=== PATIENT | male | born 1970 | race American Indian/Alaskan Native ===

== ENCOUNTER 2018-03-02 11:54 | Emergency (ER) | payer SELFPAY ==
[2018-03-02 12:15] VITALS: BP 126/84
[2018-03-02] MEDS ORDERED: DECADRON IM ONE (12:58)
--- NOTE | 2018-03-02 13:20 | Emergency Department Report ---
ED Animal Bite HPI - General Chief Complaint: Animal Bite Stated Complaint: PAIN/ SWELLING Time Seen by Provider: 03/02/18 12:37 Source: patient Mode of arrival: Ambulatory Limitations: No Limitations - History of Present Illness Initial Comments: She was in his yard mowing the grass and he was attacked by several hornets. Patient was stung on the top of his head as well as the right upper extremity he has a burning sensation is 6 out of 10 in severity patient denies any shortness of breath problems breathing at this time. Patient states is been no nausea vomiting. - Related Data Previous Rx's Medication Instructions Recorded Last Taken Type Ibuprofen [Motrin] 800 mg PO Q8HR PRN #14 tablet 03/02/18 Unknown Rx predniSONE [Deltasone] 20 mg PO QDAY #5 tab 03/02/18 Unknown Rx Allergies Allergy/AdvReac Type Severity Reaction Status Date / Time Penicillins Allergy Rash Verified 03/02/18 12:15 ED Review of Systems ROS: Stated complaint: PAIN/ SWELLING Other details as noted in HPI Comment: All other systems reviewed and negative ED Past Medical Hx - Past Medical History Additional medical history: hyperlipidemia - Social History Smoking Status: Never Smoker Substance Use Type: None - Medications Home Medications: Home Medications Medication Instructions Recorded Confirmed Last Taken Type Ibuprofen [Motrin] 800 mg PO Q8HR PRN #14 tablet 03/02/18 Unknown Rx predniSONE [Deltasone] 20 mg PO QDAY #5 tab 03/02/18 Unknown Rx ED Physical Exam - General Limitations: No Limitations General appearance: alert, in no apparent distress - Head Head exam: Present: atraumatic, normocephalic - Eye Eye exam: Present: normal appearance - ENT ENT exam: Present: mucous membranes moist - Neck Neck exam: Present: normal inspection - Respiratory Respiratory exam: Present: normal lung sounds bilaterally. Absent: respiratory distress - Cardiovascular Cardiovascular Exam: Present: regular rate, normal rhythm. Absent: systolic murmur, diastolic murmur, rubs, gallop - GI/Abdominal GI/Abdominal exam: Present: soft, normal bowel sounds - Rectal Rectal exam: Present: deferred - Extremities Exam Extremities exam: Present: normal inspection - Back Exam Back exam: Present: normal inspection - Neurological Exam Neurological exam: Present: alert, oriented X3 - Psychiatric Psychiatric exam: Present: normal affect, normal mood - Skin Skin exam: Present: warm, dry, intact, normal color, rash (patient has a macular erythematous rash on the right upper extremity as well as the top of the head) ED Course Vital Signs 03/02/18 12:10 Temperature 98 F Pulse Rate 69 Respiratory 20 Rate Blood Pressure 126/84 O2 Sat by Pulse 98 Oximetry Critical care attestation.: If time is entered above; I have spent that time in minutes in the direct care of this critically ill patient, excluding procedure time. ED Disposition Clinical Impression: Wasp sting Disposition: DC- TO HOME OR SELFCARE Is pt being admited?: No Does the pt Need Aspirin: No Condition: Stable Instructions: Insect Bite or Sting (ED) Additional Instructions: He is take Benadryl 3 times a day for the next 3 days. Also please take Maalox also the Motrin and prednisone does not cause stomach upset
== END 2018-03-02 13:50 | disposition home or self-care (01) ==
LOC: ED 11:54
DX: T14.8XXA Other injury of unspecified body region, initial encounter (principal); E78.5 Hyperlipidemia, unspecified; Z88.0 Allergy status to penicillin; W57.XXXA Bitten or stung by nonvenomous insect and other nonvenomous arthropods, initial encounter; Y93.9 Activity, unspecified; Y99.8 Other external cause status; Y92.89 Other specified places as the place of occurrence of the external cause
CPT/HCPCS: 96372; 99281; J1100